=== PATIENT | female | born 2000 | race African-American/Black ===

== ENCOUNTER 2020-06-08 19:47 | Emergency (ER) | payer OTHER ==
[2020-06-08 20:15] VITALS: BP 127/69; PULSE 94; TEMP 98.4; BMI 29.9
== END 2020-06-08 22:17 | disposition home or self-care (01) ==
LOC: JER 19:47
DX: R50.9 Fever, unspecified (principal); R05 Cough; R06.02 Shortness of breath; Z20.822 Contact with and (suspected) exposure to COVID-19
CPT/HCPCS: 87880; 99284-25; C9803; U0003